=== PATIENT | female | born 1975 | race Caucasian/White ===

== ENCOUNTER 2021-03-29 08:05 | Day surgery (SDC) | payer OTHER ==
[~2021-03-29] VITALS: Ht 167.6 cm; Wt 60.3 kg
[~2021-03-29 08:05] MED LIST: FEXOFENADINE H180 MG PO; THEREMS-M1 TAB PO; UBRELVY PO; VERELAN180 MG PO; VITAMIN D-32000 UNI2 PO
[2021-03-29 08:31] LABS: BASOPHILS 0.5 % (0-2); EOSINOPHILS 0.5 % (0-7); HEMATOCRIT 39.5 % (36.0-48.0); HEMOGLOBIN 13.4 g/dL (12-16); LYMPHOCYTES 22.1 % (15-50); MCH 30.4 pg (26.0-34.0); MCHC 33.9 g/dL (31.0-37.0); MCV 89.8 fL (80.0-100.0); MEAN PLATELET VOLUME 7.9 fL (7.4-10.4); MONOCYTES 9.1 % (2-11); NEUTROPHILS 67.8 % (40-80); PLATELET COUNT 263 10x3/uL (130-400); RBC 4.39 10x6/uL (4.00-5.40); RDW 12.6 % (11.5-14.5); WBC 4.8 10x3/uL (4.8-10.8)
[2021-03-29 08:42] LABS: CALC OSMOLALITY 284 mosm/kg (275-300); CALCIUM 8.9 mg/dL (8.5-10.1); CARBON DIOXIDE 26.9 mmol/L (21.0-32.0); CHLORIDE - SERUM 105 mmol/L (98-107); CREATININE - SERUM 0.6 mg/dL (0.6-1.3); GLUCOSE 92 mg/dL (74-106); POTASSIUM - SERUM 4.7 mmol/L (3.5-5.1); SODIUM 140 mmol/L (136-145); UREA NITROGEN 28 mg/dL (7-18); eGFR NON AFRICAN AMERICAN > 90 mL/min (90-120)
[2021-03-29 08:44] VITALS: Ht 167.6 cm; Wt 60.3 kg
[2021-03-29 08:46] LABS: HCG SERUM NEGATIVE (NEGATIVE)
--- NOTE | 2021-03-29 12:01 | NUR ---
[employer] LEAD IMPLANT [id number] LOT [id number] EXP 08-17-2022 TINED LEAD KIT 1201 SERIAL# [id number] EXP 12-06-2022
--- NOTE | 2021-03-29 15:01 | NUR ---
1405 PT STARTING TO HURT AFTER GETTING OUT OF BED. PT RATES HER PAIN A 6 OUT OF 10 ON THE PAIN SCALE. 1432 PT STATES HER PAIN LEVEL REMAINS THE SAME. DESCRIBES THE DISCOMFORT "STINGING" 1435 IV DC'D. CATHETER TIP INTACT. NO BLEEDING AT SITE. COBAN DRESSING APPLIED. DISCHARGE INSTRUCTIONS REVIEWED WITH PT AND HER . BOTH VOICE UNDERSTANDING OF INSTRUCTIONS.
== END 2021-03-29 14:47 | disposition home or self-care (01) ==
LOC: D.OPS 08:05
PROVIDERS: Anesthesiology; ATTEND Obstetrics & Gynecology Maternal & Fetal Medicine
DX: N39.41 Urge incontinence (principal)